=== PATIENT | female | born 2000 | race Caucasian/White ===

== ENCOUNTER 2020-01-21 06:49 | Day surgery (SDC) | payer OTHER, SELFPAY ==
[~2020-01-21] VITALS: Ht 157.5 cm; Wt 70.3 kg
[2020-01-21] MEDS ORDERED: LR 1,000 ML IV ONE (07:00)
[2020-01-21] MEDS ORDERED: NEOSPORIN TOP OINT 15GM As Ordered ONE (07:44)
[2020-01-21] MEDS ORDERED: ROCURONIUM BROMIDE 50 MG/5 ML VIAL As Ordered ONE (07:53)
[2020-01-21] MEDS ORDERED: LIDOCAINE 2% 100MG/5ML SDV (FOR ANES.) As Ordered ONE (07:54)
[2020-01-21] MEDS ORDERED: propofoL 200 MG/20 ML VIAL As Ordered ONE (07:54)
[2020-01-21] MEDS ORDERED: MIDAZOLAM INJ 2MG/2ML VIAL (J2250 PER 1MG) As Ordered ONE (07:54)
[2020-01-21] MEDS ORDERED: fentaNYL 100 MCG/2 ML INJECTION (J3010) As Ordered ONE (07:55)
[2020-01-21] MEDS ORDERED: BACITRACIN OINTMENT 30GM TUBE As Ordered ONE (08:10)
[2020-01-21] MEDS ORDERED: ONDANSETRON 4MG/2ML VIAL IV PRN (09:15)
[2020-01-21] MEDS ORDERED: fentaNYL 100 MCG/2 ML INJECTION (J3010) IV PRN (09:15)
[2020-01-21] MEDS ORDERED: oxyCODONE 5MG TAB PO PRN (09:15)
[2020-01-21] MEDS ORDERED: LR 1,000 ML IV SCH (09:15)
[2020-01-21 10:50] VITALS: BP 112/62
--- NOTE | 2020-02-06 17:22 | RO ---
DATE OF OPERATION: 01/21/2020 PREOPERATIVE DIAGNOSIS: Recurrent epistaxis. POSTOPERATIVE DIAGNOSIS: Recurrent epistaxis. OPERATIVE PROCEDURE: Right nasal cautery. PROCEDURE IN DETAIL: Under general anesthesia with the patient supine, the speculum was placed in the right side of the nose. Using suction cautery, I cauterized Connor area anteriorly where it was bleeding. Bacitracin ointment was placed in the nose. The patient tolerated the procedure well and was transferred to the recovery room in excellent condition. DENISE
== END 2020-01-21 10:55 | disposition home or self-care (01) ==
LOC: M SDC 06:49
PROVIDERS: ATTEND Otolaryngology
DX: R04.0 Epistaxis (principal); Z88.0 Allergy status to penicillin
CPT/HCPCS: 30901; 81025; J2250; J3010